=== PATIENT | male | born 2000 | race African-American/Black ===

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

== ENCOUNTER 2022-10-28 07:06 | Emergency (ER) | payer OTHER ==
[~2022-10-28] VITALS: Ht 177.8 cm; Wt 81.8 kg
[2022-10-28 07:33] VITALS: BP 137/80; TEMP 99
[2022-10-28 08:16] VITALS: PULSE 65
== END 2022-10-28 08:16 | disposition home or self-care (01) ==
LOC: COL.ER 07:06
DX: J02.0 Streptococcal pharyngitis (principal); Z28.310 Unvaccinated for COVID-19
CPT/HCPCS: J1100